=== PATIENT | female | born 2005 | race Caucasian/White ===

== ENCOUNTER 2024-02-22 19:54 | Emergency (ER) | payer BC ==
[~2024-02-22] VITALS: Ht 172.7 cm; Wt 72.7 kg
[2024-02-22 20:44] VITALS: TEMP 99.3
[2024-02-22] MEDS ORDERED: WELLBUTRIN SR150 M1 PO (21:45)
[2024-02-23 00:12] VITALS: BP 106/74; PULSE 106
== END 2024-02-23 00:12 | disposition home or self-care (01) ==
LOC: COL.ER 19:54
DX: H53.8 Other visual disturbances (principal); R51.9 Headache, unspecified; I45.6 Pre-excitation syndrome